=== PATIENT | male | born 2000 | race Two or more races ===

== ENCOUNTER 2020-05-02 22:14 | Emergency (ER) | payer BC, MEDICAID ==
[~2020-05-02] VITALS: Ht 172.7 cm; Wt 68.0 kg
[2020-05-02 22:14] VITALS: BP 131/77
== END 2020-05-02 23:21 | disposition left against medical advice (07) ==
LOC: ER 22:14
DX: R51 Headache (principal); Z53.21 Procedure and treatment not carried out due to patient leaving prior to being seen by health care provider